=== PATIENT | male | born 1985 | race Two or more races ===

== ENCOUNTER 2025-04-07 11:36 | Emergency (ER) | payer MEDICAID ==
[~2025-04-07] VITALS: Ht 170.2 cm; Wt 86.2 kg
[2025-04-07 11:47] VITALS: TEMP 97.9
[2025-04-07] MEDS ORDERED: ALBU18HF2 INH (12:13)
[2025-04-07 13:09] VITALS: BP 130/85; O2SAT 97
== END 2025-04-07 13:06 | disposition home or self-care (01) ==
LOC: ER 11:36
DX: J06.9 Acute upper respiratory infection, unspecified (principal); B97.89 Other viral agents as the cause of diseases classified elsewhere; M54.6 Pain in thoracic spine; Z60.2 Problems related to living alone
CPT/HCPCS: 71045-TC